=== PATIENT | male | born 1955 | race Caucasian/White ===

== ENCOUNTER 2016-08-11 10:56 | Emergency (ER) | payer MEDICAID ==
[~2016-08-11] VITALS: Ht 162.6 cm; Wt 74.8 kg
[2016-08-11 10:56] VITALS: BP 130/70; PULSE 76; RESP 16; TEMP 98; O2SAT 99
[2016-08-11] MEDS ORDERED: MORPHINE SULFATE 10 MG/ML VIAL IVP ONE (12:00)
[2016-08-11 15:20] VITALS: BP 128/74; PULSE 77; RESP 18; TEMP 98; O2SAT 99
== END 2016-08-11 15:20 | disposition home or self-care (01) ==
LOC: SED 10:56
DX: S00.83XA Contusion of other part of head, initial encounter (principal); S00.31XA Abrasion of nose, initial encounter; W05.0XXA Fall from non-moving wheelchair, initial encounter; Y93.89 Activity, other specified; Y92.89 Other specified places as the place of occurrence of the external cause; Y99.8 Other external cause status
CPT/HCPCS: 70450; 72125; 93005; 96374; 99284; J2270